=== PATIENT | female | born 2000 | race Hispanic/Latino ===

== ENCOUNTER 2020-11-01 15:57 | Outpatient (CLI) | payer OTHER ==
[~2020-11-01] VITALS: Ht 162.6 cm; Wt 58.1 kg
[2020-11-01] MEDS ORDERED: PRENTAB9 PO (16:40)
[2020-11-01 16:55] VITALS: BP 103/58
[2020-11-01 17:51] VITALS: BP 112/63
--- NOTE | 2020-11-01 17:55 | IPNPDOC ---
Obstetrical Progress Note Date of Service Nov 01, 2020 Subjective Patient presents after fall at 0800 this morning. She denied contractions or pain. She denied n/v/d, cp, sob, fregoso, visual changes, abd pain, f/c, vb, dc, urinary sx, of, decreased fm, contractions. Objective Vital Signs Date Time Temp Pulse Resp B/P (MAP) Pulse Ox O2 Delivery O2 Flow Rate FiO2 11/01/20 16:55 98.9 71 16 103/58 (73) Assessment Heart Rate (FHR): 150 Tocometer Contractions: Yes Frequency: irregular Strength: patient denies CTX's Sterile Vaginal Examination Dilation: None Station: -3 Cervical Consistency: Firm Cervical Position: Posterior Assessment and Plan Additional Comments 20yo at 20+5 presenting after fall at 0800 this morning without physical injury. She has normal VS and NST is appropriate for gestational age. She does have occasional rare contractions on toco. SVE is C/T/H and unchanged on 2h recheck. On TAUS she has +FM and visually appropriate fluid. The placenta appears normal. PTL is unlikely at this time. - strict PTL return precautions - educated that if she has another fall she should come into [facility] for evaluation immediately - routine OB return precautions - follow up at next ADRIAN Tellez DO Nov 01, 2020 17:55
[2020-11-01 19:27] VITALS: BP 111/67
== END 2020-11-01 19:48 | disposition home or self-care (01) ==
LOC: M LDO 15:57
PROVIDERS: ATTEND Obstetrics & Gynecology
DX: O99.891 Other specified diseases and conditions complicating pregnancy (principal); W19.XXXA Unspecified fall, initial encounter; Z3A.20 20 weeks gestation of pregnancy
CPT/HCPCS: G0378; G0463